=== PATIENT | female | born 1955 | race Caucasian/White ===

== ENCOUNTER → 2019-12-09 | Outpatient (CLI) | payer MEDICARE, BC | LOC: MC.RAD 09:29 | DX: C50.911 Malignant neoplasm of unspecified site of right female breast (principal); Z98.82 Breast implant status ==

== ENCOUNTER 2020-01-07 06:42 | Day surgery (SDC) | payer MEDICARE, BC ==
[~2020-01-07] VITALS: Ht 162.6 cm; Wt 81.7 kg
[2020-01-07] MEDS ORDERED: PRILOSEC 20MG20 MG PO (07:24)
[2020-01-07] MEDS ORDERED: LIPITOR 10MG10 MG PO (07:25)
[2020-01-07] MEDS ORDERED: ZETIA 10MG TAB10 MG PO (07:25)
[2020-01-07] MEDS ORDERED: ALREX 5 ML5 ML OP (07:26)
[2020-01-07 08:09] VITALS: BP 124/57; PULSE 65; TEMP 97.4
[2020-01-07 15:40] VITALS: BP 118/58; PULSE 81; TEMP 97.3
--- NOTE | 2020-01-07 15:40 | NUR ---
Patient brought back to [facility] via cart from PACU. Marlene GRIFFIN at bedside. Placed on monitors, vital signs stable. IV infusing without difficulty. Denies nausea. Pain 4/10 to breast. at bedside. Patient requesting water and apple sauce. Call perry within reach, will continue to monitor.
[2020-01-07 15:55] VITALS: BP 112/61; PULSE 79
--- NOTE | 2020-01-07 15:55 | NUR ---
Patient states she would like PO pain medication. Offered [place], patient denies states she would rather just have ibuprofen. Requests toast with jelly. Incisions to breast and axilla intact, no drainage or bleeding noted. Will conitnue to monitor.
[2020-01-07 16:10] VITALS: BP 121/61; PULSE 84
--- NOTE | 2020-01-07 16:10 | NUR ---
Ibuprofen given per MD orders. Patient tolerating food and drink without difficulty. Follow up appointment made for 1 week per orders. Will continue to monitor.
[2020-01-07 16:25] VITALS: BP 119/61; PULSE 84
--- NOTE | 2020-01-07 16:25 | NUR ---
Patient rates pain 2/10 to right breast. Incisions intact. Patient states shes ready to go home. Ambulated to bathroom without difficulty. Urinated without difficulty.
--- NOTE | 2020-01-07 16:40 | NUR ---
Discharge instructions reviewed with patient and . Verbalized understanding, all questions answered. Office number provided for questions and concerns. IV removed, intact, tolerated well. Patient to get dressed at this time. Will monitor.
--- NOTE | 2020-01-07 16:50 | NUR ---
Patient brought down to lobby via wheel chair. Patient to be driven home by . All belongings in hand.
[2020-01-21] MEDS ORDERED: TYLENOL 325MG325 MG PO (11:28)
[2020-01-21] MEDS ORDERED: MOTRIN 600600 MG/TAB PO (11:28)
== END 2020-01-07 16:50 | disposition home or self-care (01) ==
LOC: SDCO 06:42
DX: C50.311 Malignant neoplasm of lower-inner quadrant of right female breast (principal); Z17.0 Estrogen receptor positive status [ER+]; E78.00 Pure hypercholesterolemia, unspecified; M54.5 Low back pain; Z90.710 Acquired absence of both cervix and uterus; Z90.49 Acquired absence of other specified parts of digestive tract; Z80.8 Family history of malignant neoplasm of other organs or systems; Z83.3 Family history of diabetes mellitus; Z88.5 Allergy status to narcotic agent; Z88.2 Allergy status to sulfonamides; Z20.828 Contact with and (suspected) exposure to other viral communicable diseases
CPT/HCPCS: A9541; J1100; J1885; J2250; J2405; J2704; J2795; J3010; J7120

== ENCOUNTER → 2020-05-12 | Outpatient (CLI) | payer MEDICARE, BC ==
[~2020-05-12] MED LIST: ALREX 5 ML5 ML OP; LIPITOR 10MG10 MG PO; MOTRIN 600600 MG/TAB PO; PRILOSEC 20MG20 MG PO; TYLENOL 325MG325 MG PO; ZETIA 10MG TAB10 MG PO
== END ==
LOC: MC.RAD 09:34
DX: N64.52 Nipple discharge (principal); Z85.3 Personal history of malignant neoplasm of breast

== ENCOUNTER 2020-06-24 07:52 | Day surgery (SDC) | payer MEDICARE, BC ==
[~2020-06-24] VITALS: Ht 162.6 cm; Wt 82.3 kg
[2020-06-24 10:31] VITALS: BP 128/68; PULSE 68; TEMP 97.4
[2020-06-24] MEDS ORDERED: ARIMIDEX1 MG PO (10:40)
--- NOTE | 2020-06-24 10:48 | NUR ---
TO RM AT [address] ORTIZ INTO TALK WITH PATIENT
--- NOTE | 2020-06-24 11:04 | NUR ---
ATTEMTPTED TO ACCESS PORT. NO BLOOD RETURN. STARTED IV IN L AC BY Deneen DESOUZA CRNA.
[2020-06-24] MEDS ORDERED: ULTRAM 50MG TAB50 MG PO (13:11)
[2020-06-24 13:14] VITALS: BP 119/71; PULSE 79; TEMP 97.6
--- NOTE | 2020-06-24 13:14 | NUR ---
TO RM 2 PER CART FROM OR. ALERT ORIENTED X3, TALKING TO STAFF AND . SKIN ADHESIVE OVER SITE CLEAN DRY INTACT. AMBULATED TO BATHROOM WITH ASSIST. VOIDED AND AMBULATED BACK TO BED.
[2020-06-24 13:30] VITALS: BP 124/67; PULSE 75
--- NOTE | 2020-06-24 13:30 | NUR ---
RECEIVED COFFEE AND ROCÍO CRACKERS.
[2020-06-24 13:45] VITALS: BP 129/64; PULSE 80
--- NOTE | 2020-06-24 13:45 | NUR ---
DRINKING COFFEE AND TALKING WITH HER .
[2020-06-24 14:10] VITALS: BP 121/66; PULSE 73
--- NOTE | 2020-06-24 14:10 | NUR ---
RECEIVED DISCHARGE INSTRUCTIONS AND VERBALIZED UNDERSTANDING. DISCONTINUED IV AND INT- CATHETER INTACT. PATIENT GETTING DRESSED.
--- NOTE | 2020-06-24 14:20 | NUR ---
TO BATHROOM AND AMBULATING WITH STEADY GAIT.
--- NOTE | 2020-06-24 14:30 | NUR ---
DISCHARGED PER WC BY NURSING STAFF TO PRIVATE CAR IN CARE OF .
== END 2020-06-24 14:55 | disposition home or self-care (01) ==
LOC: SDCO 07:52
DX: C50.511 Malignant neoplasm of lower-outer quadrant of right female breast (principal); E78.00 Pure hypercholesterolemia, unspecified; E78.5 Hyperlipidemia, unspecified; K21.9 Gastro-esophageal reflux disease without esophagitis; M19.90 Unspecified osteoarthritis, unspecified site; Z90.710 Acquired absence of both cervix and uterus; Z79.899 Other long term (current) drug therapy; Z88.5 Allergy status to narcotic agent; Z87.891 Personal history of nicotine dependence; Z90.49 Acquired absence of other specified parts of digestive tract; Z80.8 Family history of malignant neoplasm of other organs or systems; Z80.3 Family history of malignant neoplasm of breast; Z83.3 Family history of diabetes mellitus; Z82.49 Family history of ischemic heart disease and other diseases of the circulatory system
CPT/HCPCS: J0690; J2250; J2704; J7120

== ENCOUNTER → 2021-06-03 | Outpatient (CLI) | payer MEDICARE, BC ==
[~2021-06-03] MED LIST changes: +ARIMIDEX1 MG PO; +ULTRAM 50MG TAB50 MG PO
== END ==
LOC: MC.RAD 12:35
DX: N60.01 Solitary cyst of right breast (principal); Z85.3 Personal history of malignant neoplasm of breast

== ENCOUNTER → 2021-08-01 | Outpatient (CLI) | payer MEDICARE, BC | LOC: COL.RAD 09:08 | DX: K76.0 Fatty (change of) liver, not elsewhere classified (principal); R94.5 Abnormal results of liver function studies; Z85.3 Personal history of malignant neoplasm of breast ==

== ENCOUNTER → 2022-07-06 | Outpatient (CLI) | payer MEDICARE, BC | LOC: MC.RAD 08:54 | DX: Z12.31 Encounter for screening mammogram for malignant neoplasm of breast (principal); Z85.3 Personal history of malignant neoplasm of breast; Z90.11 Acquired absence of right breast and nipple; Z92.3 Personal history of irradiation ==